=== PATIENT | female | born 1960 | race Caucasian/White ===

== ENCOUNTER 2020-06-09 06:44 | Emergency (ER) | payer OTHER ==
[2020-06-09 07:10] LABS: BASOPHIL 0.8 % (0-2); EOSINOPHIL 5.8 % (0-5); HGB 14.2 g/dl (12.5-16.0); LYMPHOCYTE 20.9 % (15-48); MCH 30.3 pg (25.0-31.0); MCV 91.7 fL (78.0-100.0); MONOCYTE 8.7 % (0-12); MPV 10.9 fL (6.0-9.5); NEUTROPHIL 63.6 % (41-80); NRBC 0; PLT 300 K/uL (150-400); RBC 4.69 M/uL (4.20-5.40); RDW 13.2 % (11.5-14.0); WBC 9.6 K/uL (4.0-10.5)
[2020-06-09 07:20] LABS: BILIRUBIN NEGATIVE (NEGATIVE); BLOOD NEGATIVE Ery/uL (NEGATIVE); CLARITY CLEAR (CLEAR); COLOR YELLOW (YELLOW); GLUCOSE (U) NORMAL (NORMAL); LEUKOCYTES NEGATIVE Leu/uL (NEGATIVE); NITRITE NEGATIVE (NEGATIVE); PROTEIN NEGATIVE (NEGATIVE); SPECIFIC GRAVITY >=1.030 (1.001-1.030); UROBILINOGEN 0.2 mg/dL (0.2-1.0)
[2020-06-09 07:27] LABS: ALBUMIN 4.5 g/dL (3.4-5.0); BILIRUBIN - TOTAL 0.4 mg/dL (0.2-1.0); BUN/CREAT RATIO (CALC) 24.7 RATIO; CREATININE 0.77 mg/dL (0.51-0.95); GLOBULIN (CALCULATION) 3.5 g/dL; POTASSIUM 4.5 mmol/L (3.5-5.1)
[2020-06-09] MEDS ORDERED: TRAMADOL HCL50 MG PO (09:21)
[2020-06-09] MEDS ORDERED: ULTRAM50 MG PO (09:37)
== END 2020-06-09 10:00 | disposition home or self-care (01) ==
LOC: FER 06:44
PROVIDERS: Emergency Medicine
DX: R19.00 Intra-abdominal and pelvic swelling, mass and lump, unspecified site (principal); I10 Essential (primary) hypertension; Z98.890 Other specified postprocedural states; Z90.710 Acquired absence of both cervix and uterus
CPT/HCPCS: 36415; 80053; 81003; 83690; 85025; Q9967